=== PATIENT | female | born 1945 | race Caucasian/White ===

== ENCOUNTER 2020-10-26 01:30 | Emergency (ER) | payer MEDICARE, BC ==
[2020-10-26 01:36] VITALS: RESP 18
[2020-10-26] MEDS ORDERED: ONDANSETRON 4 MG/2 ML VIAL IVP STA (01:52)
[2020-10-26] MEDS ORDERED: SODIUM CHLORIDE 0.9% 1,000 ML IV STA (01:52)
[2020-10-26] MEDS ORDERED: MORPHINE SULFATE 4 MG/ML SYRINGE IVP STA (01:52)
--- NOTE | 2020-10-26 02:33 | ED ---
General Adult HPI - General Chief complaint: Abdominal Pain Stated complaint: Abdominal Pain Time Seen by Provider: 10/26/20 01:45 Source: patient Mode of arrival: ambulatory Limitations: no limitations - History of Present Illness Initial comments: 75-year-old female presents to the emergency room for chief complaint of right lower quadrant abdominal pain. Patient states this started about an hour prior to arrival. Describes it as a sharp pain. Patient denies nausea vomiting diarrhea. Denies fevers or chills. Patient denies any abdominal surgeries aside from an ovarian mass removal years ago.Patient has no other complaints at this time including shortness of breath, chest pain, nausea or vomiting, headache, or visual changes. - Related Data Home Medications Medication Instructions Recorded Confirmed Atorvastatin [Lipitor] 20 mg PO DAILY 09/24/13 09/24/13 Calcium Citrate/Vitamin D3 1 tab PO DAILY 09/24/13 09/24/13 [Calcium Citrate - Vit D3 Tab] Doxepin [SINEquan] 25 mg PO HS 09/24/13 09/24/13 FLUoxetine HCL 20 mg PO HS 09/24/13 09/24/13 Fish Oil/Dha/Epa [Fish Oil 1,200 1,400 mg PO DAILY 09/24/13 09/24/13 mg Fish Oil] Triazolam 0.125 mg PO HS 09/24/13 09/24/13 Allergies Allergy/AdvReac Type Severity Reaction Status Date / Time No Known Allergies Allergy Verified 10/26/20 01:33 Review of Systems ROS Statement: Those systems with pertinent positive or pertinent negative responses have been documented in the HPI. ROS Other: All systems not noted in ROS Statement are negative. Past Medical History Past Medical History: Hyperlipidemia Additional Past Medical History / Comment(s): INTERMITTENT ABD PAIN, POST MENOPAUSAL > 2 YRS History of Any Multi-Drug Resistant Organisms: None Reported Additional Past Surgical History / Comment(s): BENIGN TUMOR REMOVED RT OVARY Past Anesthesia/Blood Transfusion Reactions: No Reported Reaction Past Psychological History: Depression Smoking Status: Never smoker Past Alcohol Use History: Rare Past Drug Use History: None Reported General Exam Limitations: no limitations General appearance: alert Head exam: Present: atraumatic Eye exam: Present: normal appearance, PERRL, EOMI. Absent: scleral icterus ENT exam: Present: normal exam, mucous membranes moist Neck exam: Present: normal inspection, full ROM. Absent: tenderness Respiratory exam: Present: normal lung sounds bilaterally. Absent: respiratory distress, wheezes Cardiovascular Exam: Present: regular rate, normal rhythm, normal heart sounds GI/Abdominal exam: Present: soft, tenderness (Right lower quadrant tenderness, no left lower quadrant or upper abdominal tenderness. No guarding or rebound.), normal bowel sounds. Absent: distended Course Vital Signs 10/26/20 10/26/20 01:33 02:43 Temperature 97.7 F Pulse Rate 72 69 Respiratory 18 18 Rate Blood Pressure 190/93 151/74 O2 Sat by Pulse 99 95 Oximetry Medical Decision Making - Medical Decision Making Vital signs stable. CBC unremarkable. CMP does show some mild dehydration. Lactic acid 2.2, likely secondary to dehydration. Urinalysis does not show any obvious evidence of infection. CT abdomen and pelvis with contrast was attempted, bile duct and mild ectasia of the intrahepatic bile ducts. Dilated gallbladder. No obstructing lesion seen. Possible obstruction at the distal common bile duct. MRCP might be helpful for further evaluation. No gallstones identified. There is a large bladder diverticula and dilated urinary bladder. Mild ileus without obstruction. Patient reevaluated and actually has no pain at this time. States she is hungry and wants to eat. Patient feels her normal s elf. Patient does need to follow up with primary care for these findings however is stable for discharge home. She will return here for any worsening symptoms. - Lab Data Result diagrams: 10/26/20 02:12 10/26/20 02:12 Lab Results 10/26/20 10/26/20 10/26/20 Range/Units 02:12 02:12 02:12 WBC 8.1 (3.8-10.6) k/uL RBC 4.43 (3.80-5.40) m/uL Hgb 14.6 (11.4-16.0) gm/dL Hct 44.1 (34.0-46.0) % MCV 99.4 (80.0-100.0) fL MCH 32.8 (25.0-35.0) pg MCHC 33.0 (31.0-37.0) g/dL RDW 12.7 (11.5-15.5) % Plt Count 291 (150-450) k/uL MPV 8.5 Neutrophils % 45 % Lymphocytes % 43 % Monocytes % 6 % Eosinophils % 1 % Basophils % 1 % Neutrophils # 3.7 (1.3-7.7) k/uL Lymphocytes # 3.5 (1.0-4.8) k/uL Monocytes # 0.5 (0-1.0) k/uL Eosinophils # 0.1 (0-0.7) k/uL Basophils # 0.0 (0-0.2) k/uL Sodium 136 L (137-145) mmol/L Potassium 4.1 (3.5-5.1) mmol/L Chloride 101 (98-107) mmol/L Carbon Dioxide 27 (22-30) mmol/L Anion Gap 8 mmol/L BUN 18 H (7-17) mg/dL Creatinine 0.69 (0.52-1.04) mg/dL Est GFR (CKD-EPI)AfAm >90 (>60 ml/min/1.73 sqM) Est GFR (CKD-EPI)NonAf 85 (>60 ml/min/1.73 sqM) Glucose 119 H (74-99) mg/dL Plasma Lactic Acid Elder (0.7-2.0) mmol/L Calcium 11.0 H (8.4-10.2) mg/dL Total Bilirubin 0.4 (0.2-1.3) mg/dL AST 29 (14-36) U/L ALT 24 (4-34) U/L Alkaline Phosphatase 111 (38-126) U/L Total Protein 7.0 (6.3-8.2) g/dL Albumin 4.6 (3.5-5.0) g/dL Amylase 86 (30-110) U/L Lipase 174 (23-300) U/L Urine Color Yellow Urine Appearance Turbid H (Clear) Urine pH 7.0 (5.0-8.0) Ur Specific Paul[place] 1.017 (1.001-1.035) Urine Protein Trace H (Negative) Urine Glucose (UA) Negative (Negative) Urine Ketones Negative (Negative) Urine Blood Negative (Negative) Urine Nitrite Negative (Negative) Urine Bilirubin Negative (Negative) Urine Urobilinogen <2.0 (<2.0) mg/dL Ur Leukocyte Esterase Large H (Negative) Urine RBC 5 (0-5) /hpf Urine WBC 12 H (0-5) /hpf Amorphous Sediment Moderate H (None) /hpf Urine Bacteria Occasional H (None) /hpf Urine Mucus Moderate H (None) /hpf 10/26/20 Range/Units 02:12 WBC (3.8-10.6) k/uL RBC (3.80-5.40) m/uL Hgb (11.4-16.0) gm/dL Hct (34.0-46.0) % MCV (80.0-100.0) fL MCH (25.0-35.0) pg MCHC (31.0-37.0) g/dL RDW (11.5-15.5) % Plt Count (150-450) k/uL MPV Neutrophils % % Lymphocytes % % Monocytes % % Eosinophils % % Basophils % % Neutrophils # (1.3-7.7) k/uL Lymphocytes # (1.0-4.8) k/uL Monocytes # (0-1.0) k/uL Eosinophils # (0-0.7) k/uL Basophils # (0-0.2) k/uL Sodium (137-145) mmol/L Potassium (3.5-5.1) mmol/L Chloride (98-107) mmol/L Carbon Dioxide (22-30) mmol/L Anion Gap mmol/L BUN (7-17) mg/dL Creatinine (0.52-1.04) mg/dL Est GFR (CKD-EPI)AfAm (>60 ml/min/1.73 sqM) Est GFR (CKD-EPI)NonAf (>60 ml/min/1.73 sqM) Glucose (74-99) mg/dL Plasma Lactic Acid Elder 2.2 H* (0.7-2.0) mmol/L Calcium (8.4-10.2) mg/dL Total Bilirubin (0.2-1.3) mg/dL AST (14-36) U/L ALT (4-34) U/L Alkaline Phosphatase (38-126) U/L Total Protein (6.3-8.2) g/dL Albumin (3.5-5.0) g/dL Amylase (30-110) U/L Lipase (23-300) U/L Urine Color Urine Appearance (Clear) Urine pH (5.0-8.0) Ur Specific [place] (1.001-1.035) Urine Protein (Negative) Urine Glucose (UA) (Negative) Urine Ketones (Negative) Urine Blood (Negative) Urine Nitrite (Negative) Urine Bilirubin (Negative) Urine Urobilinogen (<2.0) mg/dL Ur Leukocyte Esterase (Negative) Urine RBC (0-5) /hpf Urine WBC (0-5) /hpf Amorphous Sediment (None) /hpf Urine Bacteria (None) /hpf Urine Mucus (None) /hpf - Radiology Data Radiology results: report reviewed, image reviewed (by myself and Dr Ortiz) Disposition Clinical Impression: Dilated gallbladder, Bladder diverticulum Disposition: HOME SELF-CARE Condition: Good Instructions (If sedation given, give patient instructions): Acute Abdominal Pain (ED) Additional Instructions: Please follow up with primary care by calling tomorrow for an appointment. If you have any worsening symptoms return to the emergency room. Is patient prescribed a controlled substance at d/c from ED?: No Referrals: Shanice Cano MD [Primary Care Provider] - 1-2 days Time of Disposition: 04:09
[2020-10-26 02:43] LABS: Basophils % (A) 1 %; Eosinophils # (A) 0.1 k/uL (0-0.7); Eosinophils % (A) 1 %; HCT 44.1 % (34.0-46.0); HGB 14.6 gm/dL (11.4-16.0); Lymphocytes # (A) 3.5 k/uL (1.0-4.8); Lymphocytes % (A) 43 %; MCH 32.8 pg (25.0-35.0); MCV 99.4 fL (80.0-100.0); Mean Platelet Volume 8.5; Monocytes # (A) 0.5 k/uL (0-1.0); Monocytes % (A) 6 %; Neutrophils # (A) 3.7 k/uL (1.3-7.7); Neutrophils % (A) 45 %; Platelet Count 291 k/uL (150-450); RBC 4.43 m/uL (3.80-5.40); RDW 12.7 % (11.5-15.5); WBC 8.1 k/uL (3.8-10.6)
[2020-10-26 03:15] LABS: ALT 24 U/L (4-34); AST 29 U/L (14-36); African American GFR (CKD) >90 (>60 ml/min/1.73 sqM); Albumin 4.6 g/dL (3.5-5.0); Alkaline Phosphatase 111 U/L (38-126); Amorphous Sediment,Urine Moderate /hpf; Amylase 86 U/L (30-110); Anion Gap 8 mmol/L; Appearance,Urine Turbid (Clear); Bacteria,Urine Occasional /hpf; Bilirubin,Urine Negative (Negative); Blood Urea Nitrogen 18 mg/dL (7-17); Blood,Urine Negative (Negative); Carbon Dioxide 27 mmol/L (22-30); Chloride 101 mmol/L (98-107); Color,Urine Yellow; Glucose 119 mg/dL (74-99); Glucose,Urine (UA) Negative (Negative); Ketones,Urine Negative (Negative); Leukocyte Esterase,Urine Large (Negative); Lipase 174 U/L (23-300); Mucus,Urine Moderate /hpf; Nitrite,Urine Negative (Negative); Non-African American GFR(CKD) 85 (>60 ml/min/1.73 sqM); Potassium 4.1 mmol/L (3.5-5.1); Protein,Urine Trace (Negative); RBC,Urine 5 /hpf (0-5); Sodium 136 mmol/L (137-145); Specific Gravity,Urine 1.017 (1.001-1.035); Total Bilirubin 0.4 mg/dL (0.2-1.3); Urobilinogen,Urine <2.0 mg/dL (<2.0); WBC,Urine 12 /hpf (0-5)
--- NOTE | 2020-10-26 03:54 | CT ---
EXAMINATION TYPE: CT abdomen pelvis w con DATE OF EXAM: 10/26/2020 COMPARISON: None HISTORY: abd pain/ right flank pain CT DLP: 752.1 mGycm Automated exposure control for dose reduction was used. CONTRAST: Performed with IV Contrast, patient injected with 100 mL of Isovue 300. Lung bases show mild subsegmental atelectasis. Heart size is normal. There is no pericardial effusion . Stomach is intact. Liver and spleen are intact. There is large common bile duct. Gallbladder is dil ated and has diameter 5.4 cm. The common duct measures 1.7 cm. I see no pancreatic mass. There is no adrenal mass. Kidneys show satisfactory contrast opacification. There is no hydronephrosi s. Delayed images show normal renal excretion. The ureters are not dilated. Urinary bladder is large. There is large cystic fluid collection on the right side of the pelvis consistent with bladder diver ticulum that measures 10 cm. There is no evidence of thickened appendix. Uterus is anteverted. There is no free fluid in the pelvi s. There is no sign of pelvic lymphadenopathy. There is no evidence of a bowel obstruction. There is distended fluid-filled small bowel loops in the left upper quadrant measuring up to 3 cm. There are s ome large bowel diverticula. There is no sign of diverticulitis. There are multilevel spondylotic changes in the lumbar spine. There is lumbar dextroscoliotic deformi ty with disc space narrowing. There is no compression fracture. The bony pelvis is intact. IMPRESSION: Dilated common bile duct and mild ectasia of the intrahepatic bile ducts. Dilated gallbladder. No obs tructing lesion seen. Possible obstruction at the distal common bile duct. MRCP might be helpful for further evaluation. No gallstones identified. Large bladder diverticulum. Dilated urinary bladder. Distended small bowel fluid and consistent with mild ileus. I do not suspect a mechanical bowel obstruction.
[2020-10-26 05:50] VITALS: BP 151/80; PULSE 72; TEMP 97.5
== END 2020-10-26 04:40 | disposition home or self-care (01) ==
LOC: EC 01:30
DX: K82.8 Other specified diseases of gallbladder (principal); N32.3 Diverticulum of bladder; E78.5 Hyperlipidemia, unspecified; F32.9 Major depressive disorder, single episode, unspecified; Z86.018 Personal history of other benign neoplasm; Z90.721 Acquired absence of ovaries, unilateral
CPT/HCPCS: 99284; 96374; 96375; 96361; 36415; 80053; 82150; 83605; 83690; 85025; 81001; 87086; 74177; J2270; J2405; Q9967

== ENCOUNTER → 2020-11-07 | Outpatient (CLI) | payer BC, MEDICARE ==
--- NOTE | 2020-11-07 19:33 | MR ---
EXAMINATION TYPE: MR MRCP DATE OF EXAM: 11/07/2020 COMPARISON: None HISTORY: Obstruction of common bile duct Multiplanar multiecho imaging of the abdomen without contrast. There are MRCP images. FINDINGS: Gallbladder is dilated and measures 10 x 5 cm. I see no definite gallstones. Liver shows no focal def ect. There is large common bile duct that measures 12 mm. The intrahepatic bile ducts are not signifi cantly dilated. There is smooth tapering of the distal common bile duct. I see no filling defect. The pancreatic duct appears normal. There is no sign of pancreatic mass. Stomach is intact. Spleen is intact. There is no adrenal mass. Kidneys have normal size. There is no hydronephrosis. There is no sign of retroperitoneal adenopathy. There is no sign of ascites. Lung bases show no sign of pleural f luid. IMPRESSION: Dilated gallbladder. No gallstones seen. No gallbladder wall thickening seen to suggest cholecystitis .. Large common bile duct is not showing a common duct stone. Stricture of the distal common bile duct n ot excluded. Normal pancreatic duct.
== END | disposition home or self-care (01) ==
LOC: RADMRIMAIN 15:04
PROVIDERS: ATTEND Family Medicine
DX: K82.8 Other specified diseases of gallbladder (principal)
CPT/HCPCS: 74181

== ENCOUNTER 2020-12-19 19:46 | Emergency (ER) | payer MEDICARE ==
[2020-12-19] MEDS ORDERED: MORPHINE SULFATE 4 MG/ML SYRINGE IV STA (20:34)
[2020-12-19] MEDS ORDERED: SODIUM CHLORIDE 0.9% 1,000 ML IV STA (20:34)
[2020-12-19] MEDS ORDERED: ONDANSETRON 4 MG/2 ML VIAL IVP STA (20:34)
--- NOTE | 2020-12-19 20:39 | ED ---
General Adult HPI - General Chief complaint: Abdominal Pain Stated complaint: Abd Pain Time Seen by Provider: 12/19/20 20:27 Source: patient, family, RN notes reviewed Mode of arrival: wheelchair Limitations: no limitations - History of Present Illness Initial comments: 75-year-old female presents to the emergency Department with complaints of right upper quadrant and epigastric pain, onset 7 PM. Patient states this pain began after eating colvin and eggs for dinner tonight. States she is scheduled for a gallbladder removal tomorrow morning at [facility]. Reports previous hospitalizations for similar episode and had relief of symptoms with morphine. Patient denies fever, chills, chest pain, difficulty breathing, back pain, nausea, vomiting, dysuria, or diarrhea. - Related Data Home Medications Medication Instructions Recorded Confirmed Atorvastatin [Lipitor] 20 mg PO DAILY 09/24/13 09/24/13 Calcium Citrate/Vitamin D3 1 tab PO DAILY 09/24/13 09/24/13 [Calcium Citrate - Vit D3 Tab] Doxepin [SINEquan] 25 mg PO HS 09/24/13 09/24/13 FLUoxetine HCL 20 mg PO HS 09/24/13 09/24/13 Fish Oil/Dha/Epa [Fish Oil 1,200 1,400 mg PO DAILY 09/24/13 09/24/13 mg Fish Oil] Triazolam 0.125 mg PO HS 09/24/13 09/24/13 Allergies Allergy/AdvReac Type Severity Reaction Status Date / Time No Known Allergies Allergy Verified 12/19/20 19:59 Review of Systems ROS Statement: Those systems with pertinent positive or pertinent negative responses have been documented in the HPI. ROS Other: All systems not noted in ROS Statement are negative. Past Medical History Past Medical History: Hyperlipidemia Additional Past Medical History / Comment(s): INTERMITTENT ABD PAIN, POST MENOPAUSAL > 2 YRS History of Any Multi-Drug Resistant Organisms: None Reported Additional Past Surgical History / Comment(s): BENIGN TUMOR REMOVED RT OVARY Past Anesthesia/Blood Transfusion Reactions: No Reported Reaction Past Psychological History: Depression Smoking Status: Never smoker Past Alcohol Use History: Rare Past Drug Use History: None Reported General Exam Limitations: no limitations General appearance: alert, other (This is a well-developed, well-nourished female who appears quite uncomfortable. Initial temperature 97.5, pulse 74, respirations 18, blood pressure 168/81, pulse ox 99% on room air.) Respiratory exam: Present: normal lung sounds bilaterally. Absent: respiratory distress, wheezes, rales, rhonchi, stridor Cardiovascular Exam: Present: regular rate, normal rhythm, normal heart sounds. Absent: systolic murmur, diastolic murmur, rubs, gallop, clicks GI/Abdominal exam: Present: soft, tenderness (Right upper quadrant epigastric pain upon palpation), guarding (Guarding of the right upper quadrant), normal b owel sounds. Absent: distended Neurological exam: Present: alert, oriented X3, CN II-XII intact Psychiatric exam: Present: anxious Skin exam: Present: warm, dry, intact, normal color. Absent: rash Course Vital Signs 12/19/20 12/19/20 20:00 22:18 Temperature 97.5 F L Pulse Rate 74 79 Respiratory 18 20 Rate Blood Pressure 168/81 146/75 O2 Sat by Pulse 99 95 Oximetry - Reevaluation(s) Reevaluation #1: 12/19/20 21:33 Patient resting much more comfortably. Rates pain a 4 out of 10 at this time. Does request an additional dose of medicine in attempt to further reduce pain level. 12/19/20 22:44 Patient states pain level has improved after repeat dose of medicine. States she is not pain-free but is comfortable going home. Medical Decision Making - Medical Decision Making 75-year-old female with a history of known gallbladder disease presents to the e mergency department for evaluation of upper abdominal pain. Patient reports onset of pain was just under one hour after eating her evening meal. Upon exam, patient does appear quite uncomfortable, though physical exam is essentially negative. Lab work is unremarkable. Patient achieved improvement of symptoms with IV fluids, nausea medicine and pain medication. Repeat dose of pain medicine was offered prior to departure. Patient is scheduled to have her gallbladder removed tomorrow morning at [facility]. Discharge instructions were reviewed with this patient. Return parameters discussed in detail. Patient verbalizes understanding and agrees with this plan. This patient's case was discussed with my attending . - Lab Data Result diagrams: 12/19/20 20:45 12/19/20 20:45 Lab Results 12/19/20 12/19/20 Range/Units 20:45 20:45 WBC 11.1 H (3.8-10.6) k/uL RBC 4.33 (3.80-5.40) m/uL Hgb 13.8 (11.4-16.0) gm/dL Hct 41.8 (34.0-46.0) % MCV 96.6 (80.0-100.0) fL MCH 32.0 (25.0-35.0) pg MCHC 33.1 (31.0-37.0) g/dL RDW 12.2 (11.5-15.5) % Plt Count 249 (150-450) k/uL MPV 7.9 Neutrophils % 75 % Lymphocytes % 18 % Monocytes % 5 % Eosinophils % 1 % Basophils % 0 % Neutrophils # 8.3 H (1.3-7.7) k/uL Lymphocytes # 2.0 (1.0-4.8) k/uL Monocytes # 0.6 (0-1.0) k/uL Eosinophils # 0.1 (0-0.7) k/uL Basophils # 0.0 (0-0.2) k/uL Sodium 138 (137-145) mmol/L Potassium 3.5 (3.5-5.1) mmol/L Chloride 108 H (98-107) mmol/L Carbon Dioxide 19 L (22-30) mmol/L Anion Gap 11 mmol/L BUN 19 H (7-17) mg/dL Creatinine 0.64 (0.52-1.04) mg/dL Est GFR (CKD-EPI)AfAm >90 (>60 ml/min/1.73 sqM) Est GFR (CKD-EPI)NonAf 87 (>60 ml/min/1.73 sqM) Glucose 145 H (74-99) mg/dL Calcium 10.7 H (8.4-10.2) mg/dL Total Bilirubin 0.9 (0.2-1.3) mg/dL AST 38 H (14-36) U/L ALT 30 (4-34) U/L Alkaline Phosphatase 120 (38-126) U/L Total Protein 7.1 (6.3-8.2) g/dL Albumin 4.4 (3.5-5.0) g/dL Lipase 122 (23-300) U/L Disposition Clinical Impression: Abdominal pain Disposition: HOME SELF-CARE Condition: Stable Instructions (If sedation given, give patient instructions): Abdominal Pain (ED) Additional Instructions: Proceed with planned procedure tomorrow morning. Follow-up care as directed by surgeon. Return to the emergency department with any new, worsening, or concerning symptoms. Is patient prescribed a controlled substance at d/c from ED?: No Referrals: Shanice Cano MD [Primary Care Provider] - 1-2 days Time of Disposition: 23:15
[2020-12-19 20:58] LABS: Basophils % (A) 0 %; Eosinophils # (A) 0.1 k/uL (0-0.7); Eosinophils % (A) 1 %; HCT 41.8 % (34.0-46.0); HGB 13.8 gm/dL (11.4-16.0); Lymphocytes % (A) 18 %; MCHC 33.1 g/dL (31.0-37.0); MCV 96.6 fL (80.0-100.0); Mean Platelet Volume 7.9; Monocytes # (A) 0.6 k/uL (0-1.0); Monocytes % (A) 5 %; Neutrophils # (A) 8.3 k/uL (1.3-7.7); Neutrophils % (A) 75 %; Platelet Count 249 k/uL (150-450); RBC 4.33 m/uL (3.80-5.40); RDW 12.2 % (11.5-15.5); WBC 11.1 k/uL (3.8-10.6)
[2020-12-19 21:13] LABS: ALT 30 U/L (4-34); AST 38 U/L (14-36); African American GFR (CKD) >90 (>60 ml/min/1.73 sqM); Albumin 4.4 g/dL (3.5-5.0); Alkaline Phosphatase 120 U/L (38-126); Anion Gap 11 mmol/L; Blood Urea Nitrogen 19 mg/dL (7-17); Calcium 10.7 mg/dL (8.4-10.2); Carbon Dioxide 19 mmol/L (22-30); Chloride 108 mmol/L (98-107); Glucose 145 mg/dL (74-99); Lipase 122 U/L (23-300); Non-African American GFR(CKD) 87 (>60 ml/min/1.73 sqM); Potassium 3.5 mmol/L (3.5-5.1); Sodium 138 mmol/L (137-145); Total Bilirubin 0.9 mg/dL (0.2-1.3); Total Protein 7.1 g/dL (6.3-8.2)
[2020-12-19] MEDS ORDERED: MORPHINE SULFATE 2 MG/ML SYRINGE IVP ONE (21:53)
[2020-12-19 22:20] VITALS: RESP 20
[2020-12-19 23:37] VITALS: BP 136/68; PULSE 72; TEMP 98.7
== END 2020-12-19 23:36 | disposition home or self-care (01) ==
LOC: EC 19:46
DX: R10.11 Right upper quadrant pain (principal); R10.13 Epigastric pain; E78.5 Hyperlipidemia, unspecified; F32.9 Major depressive disorder, single episode, unspecified
CPT/HCPCS: 36415; 80053; 83690; 85025; 99284; 96374; 96376; 96375; 96361; J2270 ×2; J2405

== ENCOUNTER → 2021-02-09 | Outpatient (CLI) | payer MEDICARE ==
--- NOTE | 2021-02-09 10:16 | P.STRESS ---
- Stress Test Note Stress Test Results/Findings: Exam Performed: stress test Exam Date: 02/09/21 Reason for Exam: ABN EKG, PRE SURGICAL Height: 5 ft 7 in Weight: 65.9 kg Protocol: VINCENT Stage: 3 Duration of Exercise: 9:00 Resting Heart Rate: 76 Resting Blood Pressure: 166/95 Maximum Achieved Heart Rate: 145 Maximum Achieved Blood Pressure: 242/101 85% PMHR: 122 100% PMHR: 144 METS: 10.3 Technologist Comment: Stress Test Results/Findings: Patient exercised on a Vincent protocol for 9 minutes achieving a peak heart rate of 145 beats a minute Hypertensive response to exercise. Blood pressure 240 201 mmHg Twelve-lead EKG showed sinus rhythm normal [place] interval with a right bundle branch block pattern No ECG evidence for ischemia no ST segment abnormalities suggestive of ischemia No arrhythmias Impression Sinus rhythm with a right bundle branch block pattern No evidence for ischemia based on ECG good exercise capacity Hypertensive response to exercise
== END | disposition home or self-care (01) ==
LOC: RADNMMAIN 08:45
PROVIDERS: ATTEND Family Medicine
DX: Z01.818 Encounter for other preprocedural examination (principal); I45.19 Other right bundle-branch block
CPT/HCPCS: 93017